=== PATIENT | female | born 1960 | race Caucasian/White ===

== ENCOUNTER 2024-03-12 09:30 | Outpatient (RCR) | payer MEDICARE, OTHER, SELFPAY ==
[2024-03-12 10:02] LABS: Creatinine* 1.3 mg/dL (0.5-1.5); Est. Creatinine Clearance* 41.96; Estimated Glomerular Filt Rate 46 ml/min
== END 2024-08-11 23:59 | disposition home or self-care (01) ==
LOC: CCIC 09:30
PROVIDERS: Visit Provider Internal Medicine Hematology & Oncology
DX: C15.3 Malignant neoplasm of upper third of esophagus (principal)
CPT/HCPCS: 36415; 82565; 99202; 99205; 99211